=== PATIENT | male | born 1990 | race Caucasian/White ===

== ENCOUNTER 2018-03-20 23:22 | Emergency (ER) | payer SELFPAY ==
[2018-03-20 23:29] VITALS: BP 133/90
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
== END 2018-03-20 23:38 | disposition home or self-care (01) ==
DX: Z65.3 Problems related to other legal circumstances (principal)